=== PATIENT | female | born 1930 | race Caucasian/White ===

== ENCOUNTER 2018-12-14 16:50 | Inpatient (IN) | payer OTHER ==
[~2018-12-14] VITALS: Ht 152.4 cm; Wt 46.4 kg
[~2018-12-14 16:50] MED LIST: ASPI-231 PO; CALC0.25 PO; CHOL20007 PO; LIOT5TAB PO; LISI2.5T47 PO
[2018-12-14] MEDS ORDERED: SODIUM CHLORIDE 0.9% 1,000 ML IVB ONE (18:20)
[2018-12-14 18:28] LABS: Basophils # (auto) 0.1 uL; Basophils % (auto) 0.6 % (0.0-2.0); Eosinophils # (auto) 0 uL; Hematocrit 43.6 % (36.0-46.0); Hemoglobin 15.1 g/dL (12.2-16.2); Lymphocytes # (auto) 1.4 uL; Lymphocytes % (auto) 11.7 % (10.0-50.0); Mean Corpuscular Hemoglobin 33.1 pg (28.0-32.0); Mean Corpuscular Hgb Conc. 34.6 g/dL (32.0-36.0); Mean Corpuscular Volume 95.9 fL (80.0-100.0); Monocytes # (auto) 1.6 uL; Monocytes % (auto) 13.6 % (0.0-12.0); Neutrophils # (auto) 8.6 uL; Neutrophils % (auto) 74.1 % (37.0-80.0); Platelet Count (auto) 185 10^3/uL (140-450); Red Blood Cells 4.55 10^6/uL (4.0-5.20); White Blood Cell 11.6 10^3/uL (4.4-10.8)
[2018-12-14 18:51] LABS: INR 0.99 (0.9-1.15); Partial Thromboplastin Time 29.4 sec (23.64-32.05)
[2018-12-14 18:56] LABS: Albumin 3.1 g/dL (3.4-5.0); BUN/Creatinine Ratio 22.4; Calcium 8.8 mg/dL (8.5-10.1); Potassium 4.6 mmol/L (3.5-5.1); Total Protein 7.4 g/dL (6.4-8.2)
[2018-12-14 19:24] LABS: Bilirubin, Total 0.9 mg/dL (0.2-1.0)
[2018-12-14] MEDS ORDERED: MORPHINE SULF INJ 2 MG/ML SYRINGE 1ML IV ONE (19:45)
[2018-12-14] MEDS ORDERED: ONDANSETRON HCL 4 MG/2 ML VIAL IV ONE (19:45)
[2018-12-14] MEDS ORDERED: ASPirin 81 mg TAB PO ONE (20:00)
[2018-12-14] MEDS ORDERED: ACETAMINOPHEN 325 MG TAB PO ONE (20:00)
[2018-12-14 21:19] LABS: Urine Bacteria FEW /hpf (None Seen); Urine Blood 2+ /uL (Negative); Urine Mucus FEW (None Seen); Urine Specific Gravity 1.008 (1.001-1.035); Urine WBC 1 /hpf (0 - 5)
[2018-12-14] MEDS ORDERED: MORPHINE SULFATE 4 MG/ML SYR/VIAL IV PRN (21:30)
[2018-12-14] MEDS ORDERED: HYDROcodone-ACET 5/325MG TAB PO PRN (21:30)
[2018-12-14] MEDS ORDERED: MORPHINE SULF INJ 2 MG/ML SYRINGE 1ML IV PRN (21:30)
[2018-12-14] MEDS ORDERED: ACETAMINOPHEN 500 MG TAB PO PRN (21:30)
[2018-12-14] MEDS ORDERED: NITROGLYCERIN 0.4 MG SL TAB SL PRN (21:30)
[2018-12-14] MEDS ORDERED: TEMAZEPAM 15 MG CAP PO PRN (21:30)
[2018-12-14] MEDS ORDERED: LORazepam 2MG/ML-1ML VIAL IV PRN (22:00)
[2018-12-14] MEDS: DOCUSATE SOD 100 MG CAP PO SCH (22:10)
[2018-12-14 23:05] VITALS: BP 147/64
[2018-12-14 23:15] VITALS: BP 147/64
--- NOTE | 2018-12-14 23:15 | NUR ---
Telemetry admit from [facility] admitted to Telemetry unit after SBAR received. Patient oriented to Jesica Wu, primary RN, unit, room, bed, and unit policies regarding patient care and visiting hours. Patient now on continuous telemetry monitoring, tele box # 53 and telemetry reading on arrival to unit is 94 . Patient placed on bedside oxygen, weighed by bedscale and encouraged to call if they need something. All questions and concerns addressed, patient verbalized understanding. Note:
[2018-12-15] VITALS (7 sets, daily range): BP systolic 101–149; BP diastolic 48–75
[2018-12-15 05:38] LABS: Basophils # (auto) 0.1 uL; Basophils % (auto) 0.6 % (0.0-2.0); Eosinophils # (auto) 0 uL; Eosinophils % (auto) 0.1 % (0.0-7.0); Hematocrit 37.5 % (36.0-46.0); Hemoglobin 13.1 g/dL (12.2-16.2); Lymphocytes # (auto) 1.4 uL; Lymphocytes % (auto) 13.9 % (10.0-50.0); Mean Corpuscular Hemoglobin 33.7 pg (28.0-32.0); Mean Corpuscular Hgb Conc. 34.8 g/dL (32.0-36.0); Mean Corpuscular Volume 96.7 fL (80.0-100.0); Monocytes # (auto) 1.4 uL; Monocytes % (auto) 14.2 % (0.0-12.0); Neutrophils # (auto) 7.2 uL; Neutrophils % (auto) 71.2 % (37.0-80.0); Platelet Count (auto) 163 10^3/uL (140-450); Red Blood Cells 3.88 10^6/uL (4.0-5.20); Red Cell Distribution Width 14.5 % (11.8-14.3); White Blood Cell 10.1 10^3/uL (4.4-10.8)
[2018-12-15 06:03] LABS: Calcium 7.9 mg/dL (8.5-10.1); Potassium 4.4 mmol/L (3.5-5.1)
[2018-12-15 06:05] LABS: BUN/Creatinine Ratio 24.8
[2018-12-15] MEDS: PANTOPRAZOLE 40 MG TAB PO SCH (09:47)
[2018-12-15] MEDS: ASPirin-EC 81 mg tab PO SCH (09:47)
[2018-12-15] MEDS: LISINOPRIL 5 MG TAB PO SCH (09:50)
[2018-12-15] MEDS ORDERED: ASPI-231 PO (09:59)
[2018-12-15] MEDS ORDERED: LEVO25TA6 PO ×2 (09:59)
[2018-12-15] MEDS ORDERED: LISI-275 PO (09:59)
[2018-12-15] MEDS ORDERED: DIVA500T53 PO (09:59)
[2018-12-15] MEDS ORDERED: DIVA250T51 PO (09:59)
[2018-12-15] MEDS: DOCUSATE SOD 100 MG CAP PO SCH ×2 (10:00→21:28)
--- NOTE | 2018-12-15 12:00 | NUR ---
WOUND CARE NOTE: Wound care consult placed by nursing for skin tear. Patient is a 88 yo female admitted s/p fall. Patient with a history of hypertension, hypothyroidism and hip fracture with surgery in 2016. Patient is alert and denies pain. Last Chris score is 17. Patient with a skin tear to left forearm measuring 1.5x4cm. No other open wounds noted. RECOMMENDATIONS: Dietary consult; turn q2hrs; Nursing to cleanse left forearm skin tear with wound cleanser, pat dry, apply THERAHONEY GEL, cover with OPTIFOAM GENTLE, change every three days and PRN; no further need by wound care team. Addendum: 12/15/18 at 1622 by ANNAMARIA BUTLER RN Amended: Links added.
[2018-12-15] MEDS: SODIUM CHLORIDE 0.9% 1,000 ML IV SCH (14:11)
--- NOTE | 2018-12-15 20:12 | NUR ---
Opening Shift Note Assumed care of patient, awake and alert. No S/S of distress/SOB or pain. Instructed on POC and to call for assist PRN, will continue to monitor for changes Q1hr and PRN.
--- NOTE | 2018-12-15 21:55 | NUR ---
Patient mentioned to me that her Depakote medication was not administer to her. Told her I will saundra the doctor.
--- NOTE | 2018-12-15 22:02 | NUR ---
Evelyn Marquez. Waiting to call back
--- NOTE | 2018-12-15 22:17 | NUR ---
call back. I told him about the patient medication. He said to follow as her home medication doses and schedule. Depakote 250mg once Sundays, Wednesdays. Depakote 500 mg Mondays, Tuesdays, , Saturdays. Repeated orders to verify. Will follow as prescribed.
--- NOTE | 2018-12-16 01:18 | NUR ---
Patient Rounds. patient sleeping
[2018-12-16] MEDS: SODIUM CHLORIDE 0.9% 1,000 ML IV SCH (04:14)
--- NOTE | 2018-12-16 04:26 | NUR ---
patient rounds. patient sleeping
[2018-12-16 05:45] VITALS: BP 130/77
[2018-12-16 06:02] LABS: Basophils # (auto) 0 uL; Basophils % (auto) 0.5 % (0.0-2.0); Eosinophils # (auto) 0 uL; Eosinophils % (auto) 0.4 % (0.0-7.0); Hematocrit 34.5 % (36.0-46.0); Lymphocytes # (auto) 1.6 uL; Lymphocytes % (auto) 17.1 % (10.0-50.0); Mean Corpuscular Hemoglobin 33.8 pg (28.0-32.0); Mean Corpuscular Hgb Conc. 34.9 g/dL (32.0-36.0); Mean Corpuscular Volume 96.8 fL (80.0-100.0); Monocytes # (auto) 1.2 uL; Monocytes % (auto) 13.3 % (0.0-12.0); Neutrophils # (auto) 6.4 uL; Neutrophils % (auto) 68.7 % (37.0-80.0); Platelet Count (auto) 180 10^3/uL (140-450); Red Blood Cells 3.56 10^6/uL (4.0-5.20); Red Cell Distribution Width 14.3 % (11.8-14.3); White Blood Cell 9.3 10^3/uL (4.4-10.8)
[2018-12-16 06:29] LABS: BUN/Creatinine Ratio 27.2; Calcium 7.7 mg/dL (8.5-10.1); Magnesium 2.1 mg/dL (1.6-2.6); Potassium 3.9 mmol/L (3.5-5.1)
--- NOTE | 2018-12-16 07:30 | NUR ---
Opening Shift Note Assumed care of patient, PT is currently resting in bed with even and non-labored respirations. No S/S of distress. Siderails are padded and up x2. Call light within reach, bed in lowest position and locked. will continue to monitor for changes Q1hr and PRN.
[2018-12-16 09:09] VITALS: BP 150/64
[2018-12-16] MEDS: ASPirin-EC 81 mg tab PO SCH (09:16)
[2018-12-16] MEDS: PANTOPRAZOLE 40 MG TAB PO SCH (09:16)
[2018-12-16] MEDS: DOCUSATE SOD 100 MG CAP PO SCH ×2 (09:17→21:13)
[2018-12-16] MEDS: LISINOPRIL 5 MG TAB PO SCH ×2 (09:17→13:15)
--- NOTE | 2018-12-16 11:20 | NUR ---
LEAKING MEIER CATHETER UPON ASSESSMENT PT IS URINATING AROUND MEIER CATHETER. EDUCATED PT ABOUT THE NEED FOR A NEW MEIER CATHETER AND PT STATED SHE DOES NOT WANT ANOTHER MEIER PLACED Addendum: 12/16/18 at 1411 by VICENTE MAJOR RN RN EDUCATED PT ABOUT CONSEQUENCES FROM LEAKING MEIER CATHETER. PT VERBALIZED UNDERSTANDING AND IS STILL REFUSING NEW MEIER
--- NOTE | 2018-12-16 12:45 | NUR ---
ROUNDING MD QUIROZ AT BEDSIDE. ALL QUESTIONS AND CONCERNS ADDRESSED AT THIS TIME.
--- NOTE | 2018-12-16 12:59 | NUR ---
NUTRITION CONSULT/ASSESSMENT NOTES Please refer to link notes of nutrition screen form filed under the intervention section of the plan of care for further details. Est. Needs: 1350 kcal to 1550 kcal (30-35 kcal/kgBW), 46 gms to 54 gms pro (1.0-1.2 gms/kgBW). Will continue to monitor pertinent labs and reassess nutrient need prn Thank you for this consult. Addendum: 12/16/18 at [address] Amended: Links added.
[2018-12-16 13:00] VITALS: BP 123/60
[2018-12-16] MEDS ORDERED: LEVOTHYROXINE SODIUM 25 MCG TAB PO ONE (13:15)
[2018-12-16 17:17] VITALS: BP 107/45
--- NOTE | 2018-12-16 20:00 | NUR ---
Patient said her daughter is off Sunday to pick her .
[2018-12-16 21:00] VITALS: BP 125/69
--- NOTE | 2018-12-17 00:20 | NUR ---
Longo catheter dc'd Longo catheter is leaking Longo dc'd with clean technique following deflation of balloon. Patient tolerated well with no complaints of pain. Continue care.
--- NOTE | 2018-12-17 00:30 | NUR ---
Jacobo catheter insertion Patient assessed and determined to be in need of jacobo catheter. Order obtained from MD. Patient educated on catheter and reason for insertion. All questions answered. Jacobo catheter guage Yoruba inserted with clean sterile technique. Patient tolerated well.
[2018-12-17 04:30] VITALS: BP 138/77
[2018-12-17] MEDS: SODIUM CHLORIDE 0.9% 1,000 ML IV SCH ×2 (05:20→13:31)
[2018-12-17] MEDS: LEVOTHYROXINE SODIUM 25 MCG TAB PO SCH (06:19)
--- NOTE | 2018-12-17 07:32 | NUR ---
Report given to Andreas Clay, patient is resting no distress.
--- NOTE | 2018-12-17 07:35 | NUR ---
Report given to Laim Clay, patient is resting no distress.
[2018-12-17] MEDS: DOCUSATE SOD 100 MG CAP PO SCH ×2 (09:36→21:39)
[2018-12-17] MEDS: LISINOPRIL 5 MG TAB PO SCH (09:36)
[2018-12-17] MEDS: ASPirin-EC 81 mg tab PO SCH (09:36)
[2018-12-17] MEDS: PANTOPRAZOLE 40 MG TAB PO SCH (09:36)
--- NOTE | 2018-12-17 09:53 | NUR ---
physical therapy with pt walking pt
[2018-12-17 09:56] VITALS: BP 121/61
[2018-12-17 12:34] VITALS: BP 139/70
--- NOTE | 2018-12-17 13:31 | NUR ---
OFFERED TO CHANGE IV SITE PT STATED "NOT RIGHT NOW HUNNY MAYBE LATER IM RESTING"
--- NOTE | 2018-12-17 14:26 | NUR ---
md Marquez rounded on pt plan for discharge to snf per pt request tomorrow for pt/ot services
--- NOTE | 2018-12-17 15:38 | NUR ---
Discharge planning per SS consult, patient has orders to dc to SNF for PT/OT. Referral sent to [facility], and to [facility]. Placed a follow up call, spoke with Myla at and was advised they tentatively will accept this patient. Will follow up in the am of 11.6.19 for room number, accepting doctor, transportation, and auth.
--- NOTE | 2018-12-17 16:00 | NUR ---
offered to change iv site per pt "im leaving tomorrow we dont need to do that"
[2018-12-17 16:26] VITALS: BP 117/64
--- NOTE | 2018-12-17 16:53 | NUR ---
Pt is an alert and oriented female that resides with her daughter, Merissa Doan. Pt states that prior to hospitalization she functioned independently but does have a fww in the home. Pt states her daughter works during the day and that previously she has been to a rehab facility [place] Pt is in agreeance with MD order for SNF for Physical therapy. Pt verbalizes she has no preference and is willing to go with her health plans contracted providers. SS will followup regarding SNF arrangements and continue to provide intervention as appropriate. Addendum: 12/17/18 at 1656 by ANGEL [place] Amended: Links added.
[2018-12-17 21:38] VITALS: BP 111/58
[2018-12-18 05:03] VITALS: BP 139/76
[2018-12-18 05:56] LABS: Hematocrit 33.7 % (36.0-46.0); Hemoglobin 11.7 g/dL (12.2-16.2); Mean Corpuscular Hemoglobin 33.7 pg (28.0-32.0); Mean Corpuscular Hgb Conc. 34.7 g/dL (32.0-36.0); Platelet Count (auto) 238 10^3/uL (140-450); Red Blood Cells 3.48 10^6/uL (4.0-5.20); Red Cell Distribution Width 13.9 % (11.8-14.3); White Blood Cell 8.8 10^3/uL (4.4-10.8)
[2018-12-18 05:58] LABS: Basophils % (manual) 0 (0.0-2.0); Blast Cells 0; Metamyelocytes % 0; Myelocytes % 0; Promyelocytes % 0; Reactive Lymphocytes 0
[2018-12-18 06:06] LABS: Calcium 7.9 mg/dL (8.5-10.1); Potassium 3.7 mmol/L (3.5-5.1)
[2018-12-18 06:22] LABS: BUN/Creatinine Ratio 17.5
[2018-12-18 06:30] LABS: Band Neutrophils % (manual) 1; Eosinophils % (manual) 1 (0-7); Lymphocytes % (manual) 17 (10.0-50.0); Monocytes % (manual) 18 (0-12)
[2018-12-18] MEDS: SODIUM CHLORIDE 0.9% 1,000 ML IV SCH (06:46)
[2018-12-18] MEDS: LEVOTHYROXINE SODIUM 25 MCG TAB PO SCH (06:46)
--- NOTE | 2018-12-18 07:00 | NUR ---
PAGED DR. QUIROZ THE PATIENT CURRENTLY HAS A MEIER CATHETER AND IT IS LEAKING. THERE HAVE BEEN ATTEMPTS TO STOP LEAKAGE BY CHANGING MEIER SIZE, CHANGING POSITION OF THE LEG DEVICE, AND ADDING 5 MLS TO THE BALLOON, BUT THERE IS STILL SOME LEAKING. IT WAS ADVISED TO PLACE A 20 INDONESIAN MEIER CATHETER. I SPOKE WITH THE PATIENT REGARDING INCONTINENCE ISSUES AND SHE STATED THAT SHE DOES NOT HAVE ANY ISSUES OTHER THAN IN THE MORNING IF SHE CANNOT GET TO THE BATHROOM QUICK ENOUGH. THE PATIENT DOES NOT HAVE ANY SACRAL ISSUES AND IS UP WITH PT. I LEFT A MESSAGE FOR THE PHYSICIAN REGARDING WHAT HE WANTS TO ORDER. WILL CONTINUE TO MONITOR.
[2018-12-18 08:27] VITALS: BP 130/66
--- NOTE | 2018-12-18 09:48 | NUR ---
DR. QUIROZ RETURNED CALL DR. QUIROZ ORDERED REMOVAL OF THE MEIER CATHETER. WILL CARRYOUT ORDERS AND CONTINUE TO MONITOR.
[2018-12-18] MEDS: DOCUSATE SOD 100 MG CAP PO SCH (11:10)
[2018-12-18] MEDS: ASPirin-EC 81 mg tab PO SCH (11:10)
[2018-12-18] MEDS: PANTOPRAZOLE 40 MG TAB PO SCH (11:11)
[2018-12-18] MEDS: LISINOPRIL 5 MG TAB PO SCH (11:11)
--- NOTE | 2018-12-18 12:38 | NUR ---
Discharge planning per consult, patient has orders to dc to SNF. Referral sent to [facility] [phone] and [facility]. Placed a follow up call to [facility], spoke with Myla and was advised that they are able to accept this patient to room [address] Abbott. Transportation was arranged with [facility] [phone] and scheduled poultry picker time is between 3-6pm. Nurse Maria Del Rosario/Krystyna was advised of dc plan. Addendum: 12/18/18 at 1241 by MELVIN HYATT Amended: Links added.
[2018-12-18 12:56] VITALS: BP 122/57
--- NOTE | 2018-12-18 14:30 | NUR ---
Jacobo catheter dc'd Order to discontinue jacobo catheter. Jacobo dc'd with clean technique following deflation of balloon. Patient tolerated well with no complaints of pain. Continue care.
--- NOTE | 2018-12-18 16:25 | NUR ---
Discharge instructions given as ordered. Encourage to follow up with PMD as instructed. All questions and concerns addressed. Patient verbalized understanding. Medication reconciliation form completed and copy given to patient. Home medications held in Pharmacy returned to patient, and needed vaccines given. IV removed with catheter intact, pressure dressing applied, jacobo catheter removed. Telemetry unit returned to ICU. Patient taken to vehicle via wheelchair with all personal belongings, accompanied by staff and family member. No distress noted at time of departure.
== END 2018-12-18 16:25 | DRG 683 ==
LOC: EDBD 16:50 → ER 16:53 → TELE 16:54 → TELE-WESTW 23:11
PROVIDERS: ADMIT Nurse Practitioner Family; ATTEND Internal Medicine Geriatric Medicine
DX: N17.9 Acute kidney failure, unspecified (principal); M62.82 Rhabdomyolysis; S83.92XA Sprain of unspecified site of left knee, initial encounter; M25.551 Pain in right hip; M25.552 Pain in left hip; N18.3 Chronic kidney disease, stage 3 (moderate); I12.9 Hypertensive chronic kidney disease with stage 1 through stage 4 chronic kidney disease, or unspecified chronic kidney disease; E03.9 Hypothyroidism, unspecified; M25.561 Pain in right knee; W01.0XXA Fall on same level from slipping, tripping and stumbling without subsequent striking against object, initial encounter; D72.829 Elevated white blood cell count, unspecified; E78.5 Hyperlipidemia, unspecified; Z79.82 Long term (current) use of aspirin; Y93.89 Activity, other specified; Y99.8 Other external cause status; Y92.89 Other specified places as the place of occurrence of the external cause
CPT/HCPCS: 36415; 51702; 71045; 72192; 73502; 73562; 80048; 80053; 80061; 81001; 82550; 83735; 84443; 84484; 85007; 85025; 85027; 85379; 85610; 85730; 93005; 94761; 96360; 96361; 97116; 97530; G0378